=== PATIENT | female | born 1945 | race Caucasian/White ===

== ENCOUNTER 2019-10-27 16:51 | Inpatient (IN) | payer OTHER, BC ==
[~2019-10-27] VITALS: Ht 152.4 cm; Wt 103.4 kg
[2019-10-27 17:01] VITALS: BP 172/90
[2019-10-27 18:07] LABS: ABSOLUTE NEUTROPHILS 7.9 thou/uL (1.4-8.2); BASOPHILS 1.5 % (0.0-2.0); EOSINOPHILS 1.2 % (0.0-3.0); HEMATOCRIT 39.5 % (37.0-47.0); HEMOGLOBIN 12.9 gm/dL (12.0-15.0); MCH 30.8 pg (26.0-34.0); MCHC 32.8 g/dL (28.0-37.0); MCV 93.9 fL (80.0-100.0); MONOCYTES 4.7 % (1.0-8.0); PLATELET COUNT 224 thou/uL (150-400); POLYS 73.6 % (36.0-66.0); RBC 4.21 mil/uL (4.20-5.00); RDW 15.4 % (10.5-14.5); WBC 10.8 thou/uL (4.0-11.0)
[2019-10-27 18:15] LABS: ANION GAP 11 mmol/L (7-16); BUN 44 mg/dL (7-18); CALCIUM 10.5 mg/dL (8.5-10.1); CHLORIDE 101 mmol/L (98-107); CO2 26 mmol/L (21-32); CREATININE 1.5 mg/dL (0.6-1.0); GLUCOSE 180 mg/dL (74-106); POTASSIUM 4.1 mmol/L (3.5-5.1); SODIUM 138 mmol/L (136-145)
[2019-10-27 18:25] LABS: ALBUMIN 4.2 g/dL (3.4-5.0); SGOT 44 U/L (15-37); SGPT 51 U/L (30-65); TOTAL BILIRUBIN 1.2 mg/dL (<0.1-1.0); TOTAL PROTEIN 9.3 g/dL (6.4-8.2); TROPONIN-I <0.06 ng/mL (<0.06)
[2019-10-27 18:55] LABS: APTT 24.3 Seconds (24.5-32.8); PROTIME 10.7 Seconds (9.3-11.4)
[2019-10-27] MEDS ORDERED: IRON325 M1 PO (19:42)
[2019-10-27] MEDS ORDERED: FOLIC ACID1 MG PO (19:43)
[2019-10-27] MEDS ORDERED: METFORMIN HCL500 M3 PO (19:43)
[2019-10-27] MEDS ORDERED: VALSARTAN40 MG PO (19:46)
[2019-10-27] MEDS ORDERED: METHOTREXATE 22.5 M1 PO (19:48)
[2019-10-27] MEDS ORDERED: MICROZIDE12.5 MG PO (19:48)
[2019-10-27] MEDS ORDERED: ALLOPURINOL 10100 M2 PO (19:50)
[2019-10-27 19:52] VITALS: BP 135/64
[2019-10-27 20:01] VITALS: BP 135/64
[2019-10-27 20:36] VITALS: BP 148/63
[2019-10-27 20:47] VITALS: BP 142/48
[2019-10-27] MEDS ORDERED: PREDNISONE 1 MG1 M1 PO (23:07)
[2019-10-28 00:35] VITALS: BP 111/48
[2019-10-28 04:45] VITALS: BP 112/41
--- NOTE | 2019-10-28 05:22 | NUR ---
PT ARRIVED ON UNIT AROUND 2039. PT VSS WITH C/O HEADACHE ON LEFT SIDE. NO PAIN MEDICATION GIVEN AT TIME DUE TO ADMINISTRATION IN ED. PT HAD PARTIAL RELIEF OF PAIN. ADMIN ASSESSMENT CHARTED, MED RECONCILE, AND CONSENT SIGNED. PT RESTING IN BED WITH NO C/O CHEST PAIN OR SOA. MAINTAINING CARDIZEM DRIP AND PT HR/BP STABLE. WILL CONTINUE TO MONITOR PT PER PROTOCOL AND PLAN OF CARE.
[2019-10-28 06:04] LABS: CHOLESTEROL 167 mg/dL (<200); HDL CHOLESTEROL 56 mg/dL (>40); LDL CHOLESTEROL 93 mg/dL (<100); TRIGLYCERIDE 90 mg/dL (<150); VLDL 18 mg/dL (<40)
[2019-10-28 07:14] VITALS: BP 138/55
[2019-10-28 11:13] VITALS: BP 136/43
[2019-10-28 15:23] VITALS: BP 122/52
[2019-10-28 20:04] VITALS: BP 96/45
--- NOTE | 2019-10-29 01:35 | NUR ---
PROGRESS PT ALERT AND ORIENTED X 4. SLEEPING MOST OF SHIFT BUT DID WAKE UP AND RESPOND T ASSESSMENT QUESTIONS. BP ELEVATED AND METOPROLOL GIVEN ORDERED. DENIES HEADACHE. CARDIZEIM DRIP DISCONTINUED EARLY IN DAY PO CARDIZEIM GIVEN ORDERED. XARALTO INITIIATED. PT TO HAVE NUC MED STUDY, ECHO , US OF CAROTIDS DONE TOMORROW. IF TEST RESULTS WNL PT MAY DISCHARGE HOME TO TO F/U OUTPATIENT.
[2019-10-29 04:04] VITALS: BP 128/55
[2019-10-29 04:06] LABS: GLYCOHEMOGLOBIN (HGB A1C) 6.2 % (4.8-5.6)
[2019-10-29 10:55] VITALS: BP 144/74
[2019-10-29] MEDS ORDERED: CARDIZEM CD120 MG PO (11:27)
--- NOTE | 2019-10-29 11:38 | 2DMMODE ---
[facility] [address] [facility] [place] [address] 2 D/M-MODE ECHOCARDIOGRAM Name: ORTEGA PARKER Room #: 201-P ADM IN M.R.#: [id number] Admission: 10/27/19 Attend Phys: Wilfred Patel MD Discharge: Date of : 45 Report #: [id number] THIS REPORT FOR: //name// APPROVED REPORT Study performed: 10/29/2019 09:25:49 EXAM: Comprehensive 2D, Doppler, and color-flow Echocardiogram Patient Location: Echo lab Room #: 201 Status: routine BSA: 1.97 HR: 80 bpm BP: 128/55 mmHg Rhythm: NSR Other Information Study Quality: Adequate Indications Diabetes Atrial Fibrillation Hypertension/HDD 2D Dimensions RVDd: 33.15 mm IVSd: 8.97 (7-11mm) LVOT Diam: 18.79 (18-24mm) LVDd: 47.10 mm PWd: 9.05 (7-11mm) Ascending Ao: 27.13 (22-36mm) LVDs: 30.38 (25-40mm) Aortic Root: 25.19 mm IVC: 18.00 mm Volumes Left Atrial Volume (Systole) Single Plane 4CH: 39.70 mL Single Plane 2CH: 41.43 mL LA ESV Index: 22.00 mL/m2 Aortic Valve AoV Peak Jaylen.: 1.74 m/s AO Peak Gr.: 12.16 mmHg LVOT Max P.99 mmHg LVOT Max V: 1.00 m/s SAMUEL Vmax: 1.59 cm2 Mitral Valve E/A Ratio: 0.8 [facility] [address] [place] [address] 2 D/M-MODE ECHOCARDIOGRAM Name: ORTEGA PARKER Room #: 201-P [facility] IN [facility]#: [id number] Admission: 10/27/19 Attend Phys: Wilfred Patel MD Discharge: Date of : 45 Report #: [id number] MV Decel. Time: 320.70 ms MV E Max Jaylen.: 0.82 m/s MV A Jaylen.: 0.99 m/s MV PHT: 93.00 ms IVRT: 106.11 ms Pulmonary Valve PV Peak Jaylen.: 1.12 m/s PV Peak Gr.: 5.03 mmHg Pulmonary Vein P Vein S: 0.51 m/s P Vein A: 0.25 m/s P Vein D: 0.50 m/s P Vein A Dur.: 96.9 msec P Vein S/D Ratio: 1.02 Tricuspid Valve TR Peak Jaylen.: 2.25 m/s TR Peak Gr.: 20.19 mmHg PA Pressure: 25.00 mmHg Left Ventricle The left ventricle is normal size. There is normal LV segmental wall motion. There is normal left ventricular wall thickness. Left ventricular systolic function is normal. The left ventricular ejection fraction is within the normal range. LVEF is 55-60%. Grade I - abnormal relaxation pattern. Right Ventricle The right ventricle is normal size. The right ventricular systolic function is normal. Atria The left atrium size is normal. The right atrium size is normal. Aortic Valve The aortic valve is normal in structure. No aortic regurgitation is present. There is no aortic valvular stenosis. Mitral Valve The mitral valve is normal in structure. Trace mitral regurgitation. No evidence of mitral valve stenosis. Tricuspid Valve The tricuspid valve is normal in structure. There is trace tricuspid regurgitation. Estimated PAP 25 mmHg. There is no pulmonary hypertension. [facility] [address] [place] [address] 2 D/M-MODE ECHOCARDIOGRAM Name: ORTEGA PARKER Room #: 201-P [facility] IN [facility].#: [id number] Admission: 10/27/19 Attend Phys: Wilfred Patel MD Discharge: Date of : 45 Report #: [id number] Pulmonic Valve The pulmonary valve is normal in structure. Trace pulmonic regurgitation. Great Vessels The aortic root is normal in size. IVC is normal in size and collapses >50% with inspiration. Pericardium There is no pericardial effusion. <Conclusion> The left ventricle is normal size. Left ventricular systolic function is normal. The left ventricular ejection fraction is within the normal range. LVEF is 55-60%. Grade I - abnormal relaxation pattern. The right ventricle is normal size. The left atrium size is normal. The aortic valve is normal in structure. Trace mitral regurgitation. There is trace tricuspid regurgitation. Estimated PAP 25 mmHg. There is no pulmonary hypertension. The aortic root is normal in size. There is no pericardial effusion. <ELECTRONICALLY SIGNED> By: Barrie Weldon MD, FACC 10/29/19 1138 1138 1138 Barrie Weldon MD, FACC /INF
[2019-10-29] MEDS ORDERED: XARELTO10 MG PO (15:00)
[2019-10-29 15:14] VITALS: BP 144/74
[2019-10-29] MEDS ORDERED: LIPITOR 20 MG T20 M1 PO (15:15)
--- NOTE | 2019-10-29 16:08 | EKG ---
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
--- NOTE | 2019-10-29 16:10 | NUR ---
ASSESSMENT CHARTED. PT ALERT AND ORIENTED. VSS. DENIED HAVING PAIN OR DISCOMFORT. SEEN BY DR. VALDEZ AND STRIP POLISHER. ORDERS GIVEN TO DISCHARGE PT TO HOME. DISCHARGE INSTRUCTIONS GIVEN TO PT. PT VERBERLISED UNDERSTANDING. PT LEFT THE FACILITY ACCOMPANIED BY THE DAUGHTER.
--- NOTE | 2019-10-30 14:54 | EKG ---
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: [place] : 1945 Requested By: Yeni Love Order Number: [id number] MD: Waqas Nielsen Measurements Intervals [place] Rate: 131 P: [place]: QRS: -45 QRSD: 103 T: 68 QT: 334 QTc: 494 Interpretive Statements Atrial fibrillation Ventricular premature complex Incomplete RBBB and LAFB Anteroseptal infarct, age indeterminate No previous ECG available for comparison Electronically Signed On 10-30-2019 14:54:30 SHOP HELPER by Waqas Nielsen [email or web address] <ELECTRONICALLY SIGNED> By: Waqas Nielsen MD 10/30/19 1454 [id number] Waqas Nielsen MD /EPI
--- NOTE | 2019-10-30 14:58 | EKG ---
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: MAYCO : 1945 Requested By: Jannet Gambino Order Number: [id number] MD: Waqas Nielsen Measurements Intervals [place] Rate: 68 P: -83 MT: 312 QRS: -43 QRSD: 103 T: 9 QT: 417 QTc: 444 Interpretive Statements Sinus or ectopic atrial rhythm Prolonged MT interval Left axis deviation Probable anteroseptal infarct, old No previous ECG available for comparison Electronically Signed On 10-30-2019 14:57:44 [place] by Waqas Nielsen [email or web address] <ELECTRONICALLY SIGNED> By: Waqas Nielsen MD 10/30/19 1457 0754 0754 Waqas Nielsen MD /EPI
== END 2019-10-29 16:46 | disposition home or self-care (01) | DRG 310 ==
LOC: ER 16:51 → 2N 19:15 → EROBS 19:15 → 2N 20:23 → ENTRNSPT 10-29 15:58 → 2N 10-29 16:46
PROVIDERS: Nurse Practitioner Acute Care; Physician Assistant; ADMIT Hospitalist
DX: I48.91 Unspecified atrial fibrillation (principal); H53.9 Unspecified visual disturbance; H57.12 Ocular pain, left eye; M06.9 Rheumatoid arthritis, unspecified; M10.9 Gout, unspecified; J44.9 Chronic obstructive pulmonary disease, unspecified; E11.22 Type 2 diabetes mellitus with diabetic chronic kidney disease; I12.9 Hypertensive chronic kidney disease with stage 1 through stage 4 chronic kidney disease, or unspecified chronic kidney disease; N18.3 Chronic kidney disease, stage 3 (moderate); E78.5 Hyperlipidemia, unspecified; E03.9 Hypothyroidism, unspecified; Z87.891 Personal history of nicotine dependence; Z79.899 Other long term (current) drug therapy; Z79.84 Long term (current) use of oral hypoglycemic drugs; Z82.49 Family history of ischemic heart disease and other diseases of the circulatory system; Z79.01 Long term (current) use of anticoagulants
CPT/HCPCS: 10081

== ENCOUNTER → 2019-11-30 | Outpatient (CLI) | payer OTHER, BC ==
[~2019-11-30] MED LIST: ALLOPURINOL 10100 M2 PO; CARDIZEM CD120 MG PO; FOLIC ACID1 MG PO; IRON325 M1 PO; LIPITOR 20 MG T20 M1 PO; METFORMIN HCL500 M3 PO; METHOTREXATE 22.5 M1 PO; METOPROLOL SUCC50 MG PO; MICROZIDE12.5 MG PO; PACERONE 200 M200 M1 PO; PREDNISONE 1 MG1 M1 PO; VALSARTAN40 MG PO; XARELTO10 MG PO
== END ==
LOC: SJCVC 15:46
DX: I44.0 Atrioventricular block, first degree (principal); I45.10 Unspecified right bundle-branch block; I21.29 ST elevation (STEMI) myocardial infarction involving other sites; R94.31 Abnormal electrocardiogram [ECG] [EKG]; I48.91 Unspecified atrial fibrillation; E78.5 Hyperlipidemia, unspecified; I10 Essential (primary) hypertension; E11.9 Type 2 diabetes mellitus without complications; I65.23 Occlusion and stenosis of bilateral carotid arteries; M10.9 Gout, unspecified; Z87.891 Personal history of nicotine dependence; Z72.89 Other problems related to lifestyle; Z79.84 Long term (current) use of oral hypoglycemic drugs; Z79.899 Other long term (current) drug therapy

== ENCOUNTER 2019-12-01 10:29 | Inpatient (IN) | payer OTHER, BC ==
[2019-12-01] VITALS (8 sets, daily range): BP systolic 114–153; BP diastolic 45–87
[~2019-12-01] VITALS: Ht 154.9 cm; Wt 98.9 kg
--- NOTE | ~2019-12-01 | EKG ---
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
[~2019-12-01 10:29] MED LIST changes: -METOPROLOL SUCC50 MG PO; -PACERONE 200 M200 M1 PO
[2019-12-01 11:16] LABS: ABSOLUTE NEUTROPHILS 12.6 thou/uL (1.4-8.2)
[2019-12-01 11:18] LABS: BASOPHILS 0.4 % (0.0-2.0); LYMPHOCYTES 7.9 % (24.0-44.0); MCH 29.6 pg (26.0-34.0); MCHC 29.7 g/dL (28.0-37.0); MCV 99.7 fL (80.0-100.0); MONOCYTES 5.5 % (1.0-8.0); PLATELET COUNT 263 thou/uL (150-400); POLYS 86.2 % (36.0-66.0); RBC 1.94 mil/uL (4.20-5.00); RDW 19.9 % (10.5-14.5); WBC 14.6 thou/uL (4.0-11.0)
[2019-12-01 11:25] LABS: HEMATOCRIT 19.3 % (37.0-47.0); HEMOGLOBIN 5.7 gm/dL (12.0-15.0)
[2019-12-01 11:37] LABS: ANION GAP 14 mmol/L (7-16); BUN 27 mg/dL (7-18); CALCIUM 8.8 mg/dL (8.5-10.1); CHLORIDE 100 mmol/L (98-107); CO2 20 mmol/L (21-32); CREATININE 1.4 mg/dL (0.6-1.0); GLUCOSE 227 mg/dL (74-106); POTASSIUM 3.8 mmol/L (3.5-5.1); SODIUM 134 mmol/L (136-145)
[2019-12-01 11:47] LABS: ALBUMIN 3.3 g/dL (3.4-5.0); SGOT 20 U/L (15-37); SGPT 20 U/L (30-65); TOTAL BILIRUBIN 1.8 mg/dL (<0.1-1.0); TOTAL PROTEIN 7.6 g/dL (6.4-8.2); TROPONIN-I <0.06 ng/mL (<0.06)
[2019-12-01 11:59] LABS: ANISOCYTOSIS 2+; HYPOCHROMASIA 1+; PLATELET ESTIMATE NORMAL
--- NOTE | 2019-12-01 14:29 | NUR ---
VASCULAR ACCESS CONSULTED FOR PICC LINE. DISCUSSED BENEFITS AND RISKS OF PICC, WITH PT, VERBALIZED UNDERSTANDING. PT'S HISTORY ,LABS,MEDS ORDER VERIFIED. CHAUNCEY CEPHALIC WAS WIDELY PATENT WITH USG, BASILIC WAS TOO SMALL AND BRACHIAL WAS BENEATH ARTERY. ATTEMPTED PICC BUT UNABLE TO PASS SHOULDER AREA. PT STATES HAS ARTHRITIS IN BOTH SHOULDERS. LINE TRIMMED TO 10CM AND LABELED MIDLINE. RELEASED ML FOR IMMEDIATE USE PER PROTOCOL TO EMILIA AMARAL, ALSO ADVISED TO USE ML FOR PROTONIX NOT AMMIO DRIP. PT TOLERATED WELL
--- NOTE | 2019-12-01 18:21 | NUR ---
ASSUMMED PT CARE AT APPROXIMATELY 1515. PT A&O X4. ASSESSMENT CHARTED. FALL PRECAUTIONS IN PLACE. PT DENIES HAVING CHEST PAIN. PT DENIES HAVING ACUTE PAIN. PT STATES SHE HAS SOB ON EXERSION. O2 SATS STABLE. VITAL SIGNS STABLE. BLOOD SUGARS STABLE. PT RECIEVING ONE UNIT OF BLOOD. PT STABLE. SEE BLOOD TRANSFUSION INTERVENTION. ADMISSION COMPLETE. PT EDUCATED ABOUT POC. PT COMFORTABLE IN BED. PT DENIES HAVING FURTHER CONCERNS.
[2019-12-02 03:53] VITALS: BP 139/49
--- NOTE | 2019-12-02 07:22 | NUR ---
patients cares were assumd at shift change. patient was assessed and meds were passed. patient has been npo for a egd today. this patient has a amio gtt at 16.7 and protonix at 25cc/hr. pharm was call for another protonix bag. hourly rounds were done and the bed is in a low and locked position
[2019-12-02 07:23] VITALS: BP 131/58
--- NOTE | 2019-12-02 07:55 | EKG ---
[place] [address] [facility] [email or web address] [address] ELECTROCARDIOGRAM REPORT Name: KEITHORTEGA Gurdeep Room #: 201-P ADM IN M.R.#: [id number] Admission: 12/01/19 Attend Phys: Jenny Moy MD Discharge: Date of : 45 Report #: [id number] THIS REPORT FOR: //name// [facility] ED Test Date: 2019-12-01 Test Time: 10:54:38 Pat Name: ORTEGA PARKER Department: Room: 201 Gender: F Chairman And Ceo: mae : 1945 Requested By: Chandu Pillai Order Number: [id number] MD: Miles Wiggins Measurements Intervals [place] Rate: 123 P: [place]: QRS: -42 QRSD: 103 T: 81 QT: 328 QTc: 470 Interpretive Statements Atrial fibrillation Left axis deviation Low voltage, precordial leads Abnormal R-wave progression, early transition Nonspecific intraventricular conduction delay Borderline repolarization abnormality Compared to ECG 10/29/2019 06:57:24 Atrial fibrillation has replaced sinus rhythm Electronically Signed On 12-02-2019 7:54:51 SHOP STEWARD by Miles Wiggins [email or web address] <ELECTRONICALLY SIGNED> By: Miles Wiggins MD, [facility] 12/02/19 0754 1054 1054 Miles Wiggins MD, [facility] /EPI
[2019-12-02 08:17] LABS: HEMATOCRIT 27.3 % (37.0-47.0); HEMOGLOBIN 8.8 gm/dL (12.0-15.0); MCH 28.1 pg (26.0-34.0); MCHC 32.3 g/dL (28.0-37.0); PLATELET COUNT 308 thou/uL (150-400); RBC 3.14 mil/uL (4.20-5.00); RDW 14.9 % (10.5-14.5); WBC 10.1 thou/uL (4.0-11.0)
[2019-12-02 08:40] LABS: ABSOLUTE NEUTROPHILS 9.2 thou/uL (1.4-8.2); PLATELET ESTIMATE NORMAL
[2019-12-02 08:48] LABS: CALCIUM 7.7 mg/dL (8.5-10.1); CREATININE 0.8 mg/dL (0.6-1.0); MAGNESIUM 2.2 mg/dL (1.8-2.4); PHOSPHORUS 3.2 mg/dL (2.5-4.9); TOTAL BILIRUBIN 0.2 mg/dL (<0.1-1.0); TOTAL PROTEIN 4.6 g/dL (6.4-8.2)
[2019-12-02 12:15] VITALS: BP 129/72
--- NOTE | 2019-12-02 15:51 | NUR ---
PT ALERT AND ORIENTED. DENIED HAVING PAIN OR DISCOMFORT. HAD EGD THIS AM. NPO AFTER MIDNIGHT FOR COLONOSCOPY IN AM. ST ON MONITOR. CARDIOLOGY NOTIFIED. NO CONCERNS AT THIS TIME. WILL CONTINUE TO MONITOR.
[2019-12-02 17:05] VITALS: BP 118/60
[2019-12-02 21:01] LABS: HEMATOCRIT 28.1 % (37.0-47.0); HEMOGLOBIN 8.6 gm/dL (12.0-15.0)
[2019-12-02 21:06] VITALS: BP 115/60
[2019-12-03 04:44] LABS: HEMATOCRIT 24.7 % (37.0-47.0); HEMOGLOBIN 7.8 gm/dL (12.0-15.0); MCH 30.3 pg (26.0-34.0); MCHC 31.4 g/dL (28.0-37.0); RBC 2.56 mil/uL (4.20-5.00); RDW 17.8 % (10.5-14.5); WBC 7.9 thou/uL (4.0-11.0)
[2019-12-03 04:45] VITALS: BP 108/68
--- NOTE | 2019-12-03 04:48 | NUR ---
ASSESSMENT DOCUMENTED.PT BEEN RESTING IN NO ACUTE DISTRESS.A/OX4.VSS.BOWEL PREP FOR COLONOSCOPY,PT HAS BEEN CLEAR.NPO AFTER MIDNOC.SR/STACHY ON MONITOR.NO ACTIVE BLEEDING NOTED.PT DENIES PAIN OR ANY DISTRESS AT THIS TIME.WILL CONT TO MONITOR PER POC
[2019-12-03 04:54] LABS: MCV 96.4 fL (80.0-100.0)
[2019-12-03 05:20] LABS: CALCIUM 8.7 mg/dL (8.5-10.1); CREATININE 1.2 mg/dL (0.6-1.0); POTASSIUM 3.8 mmol/L (3.5-5.1)
[2019-12-03 07:20] VITALS: BP 126/63
[2019-12-03 15:15] VITALS: BP 113/50
--- NOTE | 2019-12-03 15:36 | NUR ---
ASSESSMENT CHARTED. PT ALERT AND ORIENTED. VSS. DENIED HAVING PAIN OR DISCOMFORT. HAD COLONOSCOPY THIS AM. NO CARDIAC DISTRESS NOTED. WILL CONTINUE TO MONITOR.
[2019-12-03 17:09] LABS: HEMATOCRIT 27.9 % (37.0-47.0); HEMOGLOBIN 8.8 gm/dL (12.0-15.0)
[2019-12-03 20:07] VITALS: BP 104/52
--- NOTE | 2019-12-04 01:07 | P ---
[facility] [place] [address] PROCEDURE REPORT Name: ORTEGA PARKER Room #: 201-P ADM IN M.R.#: [id number] Admission: 12/01/19 Attend Phys: Jenny Moy MD Discharge: Date of : 45 Report #: [id number] THIS REPORT FOR: //name// cc: SHARDA - Family physician unknown FAM - Family physician unknown ~ THIS REPORT FOR: //name// CC: SHARDA unknown Jenny Moy MD DIAGNOSTIC COLONOSCOPY She is a patient of Dr. Moy. INDICATION FOR PROCEDURE: The patient has a severe iron deficiency anemia of undetermined etiology. She had an EGD that was unrevealing as to the source. Colonoscopy is being done today as the next test and her workup for blood loss sources. Informed consent for this procedure was obtained prior to the administration of any medication. The risks of the procedure, which include bleeding, perforation, infection, complications of sedation and the possibility I could miss something have been explained to the patient. She has indicated her consent by signing. Anesthesia kindly provided deep sedation for this procedure today. DESCRIPTION OF PROCEDURE: With the patient in the left lateral decubitus position, a digital rectal exam was performed, no abnormalities were palpated or seen. Then, the Olympus colonoscope was introduced through the anal sphincter and advanced under direct visualization to the terminal ileum. Findings are noted on withdrawal of the scope. The terminal ileal mucosa appears normal. Cecum, normal mucosa. Ascending colon, normal mucosa. Retroflex view in the ascending colon did not reveal any abnormalities on the backsides of the folds. Hepatic flexure, normal mucosa. Transverse colon, normal mucosa. Splenic flexure, normal mucosa. Descending colon, a few uncomplicated diverticula noted in the descending colon. Sigmoid colon, a few uncomplicated diverticula are noted in the sigmoid colon. Rectum, normal mucosa. Retroflex view did not reveal any further abnormalities. The scope was withdrawn. The patient went to the recovery area in stable condition. She tolerated the procedure well. IMPRESSION: Normal colonoscopic exam to the terminal ileum except for uncomplicated left-sided diverticulosis. RECOMMENDATIONS: For her to proceed next to outpatient M2 video capsule study of the small intestine to look for a source of iron deficiency and blood loss [address] [address] PROCEDURE REPORT Name: ORTEGA PARKER Gurdeep Room #: 201-P ADM IN M.R.#: [id number] Admission: 12/01/19 Attend Phys: Jenny Moy MD Discharge: Date of : 45 Report #: [id number]. In this interim, we will give her 1 dose of 200 mg of IV sucrose today. From our standpoint, she could be discharged home. She had a normal hemoglobin in 10/2019. This was an abrupt drop in her hemoglobin. She has had heme positive stool and she has had a negative H. pylori stool antigen test. Thank you very much once again for allowing me to participate in her care, Dr. Moy. <ELECTRONICALLY SIGNED> By: Erica Hernandez DO 12/04/19 0107 1133 1926 Erica Hernandez DO /nt
[2019-12-04 05:10] VITALS: BP 113/49
--- NOTE | 2019-12-04 05:33 | NUR ---
ASSESSMENT DOCUMENTED.PT BEEN RESTING IN NO ACUTE DISTRESS.VSS.RA W/O RESP DISTRESS.A/OX4.DENIES PAIN OR ANY DISTRESS AT THIS TIME.POC IS TO GO HOME.WILL CONT TO MONITOR PER POC.
[2019-12-04 05:48] LABS: HEMOGLOBIN 7.9 gm/dL (12.0-15.0); MCH 30.2 pg (26.0-34.0); MCHC 31.5 g/dL (28.0-37.0); RBC 2.61 mil/uL (4.20-5.00); RDW 17.4 % (10.5-14.5); WBC 7.3 thou/uL (4.0-11.0)
[2019-12-04 05:58] LABS: CALCIUM 8.4 mg/dL (8.5-10.1); CREATININE 1.3 mg/dL (0.6-1.0); POTASSIUM 3.8 mmol/L (3.5-5.1)
[2019-12-04 07:25] VITALS: BP 129/54
[2019-12-04] MEDS ORDERED: PACERONE 200 M200 M1 PO (09:37)
[2019-12-04] MEDS ORDERED: METOPROLOL SUCC50 MG PO (09:37)
[2019-12-04 10:33] VITALS: BP 129/54
[2019-12-04 11:20] VITALS: BP 112/41
--- NOTE | 2019-12-04 11:38 | P ---
[facility] [place] [address] PROCEDURE REPORT Name: ORTEGA PARKER Room #: 201-P ADM IN M.R.#: [id number] Admission: 12/01/19 Attend Phys: Jenny Moy MD Discharge: Date of : 45 Report #: [id number] THIS REPORT FOR: //name// CC: VINH FERNANDEZ MD FAM unknown JAMIE Moy ___ ___ DATE OF SERVICE: 12/02/2019 PROCEDURE PERFORMED: Upper endoscopy. HISTORY OF PRESENT ILLNESS: The patient is a 74-year-old female who was admitted through the Emergency Room yesterday with significant anemia. She was seen by Cardiology in the office the day before yesterday with a hemoglobin of 5, told to come to the Emergency Room. She has been placed on Xarelto approximately a month ago for a history of AFib. She also takes methotrexate, prednisone as well as other medications. No previous history of GI bleed. No history of endoscopy. She has been having dark stools over the last month. She has been taking oral iron. Her hemoglobin on admission yesterday was 5.7. She received 2 units of packed cells. Her hemoglobin this morning is 8.8. Plan is for EGD. DESCRIPTION OF PROCEDURE: The risks and benefits of the procedure were explained to the patient, those risks including but not limited to bleeding, perforation and the risk of sedation. She understood these risks and gave informed consent. Sedation was given using propofol per anesthesia. Next, using a standard Olympus upper endoscope, the scope was placed in the patient's mouth and advanced under direct vision through the esophagus, stomach and into the second portion of the duodenum. The larynx was normal in appearance. The upper and mid esophagus was normal. In the distal esophagus, grade C erosive esophagitis was noted. No evidence of bleeding. There was a moderate patchy gastritis noted throughout the body and antrum. Several clean white based ulcers were noted. No evidence of bleeding. No evidence of blood throughout the exam today. I was not able to take biopsies as the patient has recently been on Xarelto. The pylorus was normal and patent. The duodenal bulb, first and second portion were all normal. The scope was then withdrawn and the procedure terminated. The patient tolerated the procedure well. IMPRESSION: 1. Grade C erosive esophagitis. 2. Small gastric ulcers with gastritis, clean white based ulcers. No evidence of bleeding. RECOMMENDATIONS: [address] [address] PROCEDURE REPORT Name: ORTEGA PARKER Room #: 201-P [facility] IN .R.#: [id number] Admission: 12/01/19 Attend Phys: Jenny Moy MD Discharge: Date of : 45 Report #: [id number] 1. Continue Protonix drip. 2. Continue to monitor hemoglobin closely. 3. We would recommend considering colonoscopy tomorrow as the patient has never had a colonoscopy before. 4. We will check a stool for H. pylori antigen. Thank you for allowing me to participate in her care. <ELECTRONICALLY SIGNED> By: Rahul Quintero MD 12/04/19 1138 0942 2238 Rahul Quintero MD /nt
--- NOTE | 2019-12-04 13:28 | NUR ---
ASSESSMENT CHARTED. PT ALERT AND ORIENTED. VSS. DENIED HAVING PAIN OR DISCOMFORT. SEEN BY DR. FOWLER. ORDERS GIVEN TO DISCHARGE PT TO HOME. DISCHARGE INSTRUCTIONS GIVEN TO PT. PT VERBERLISED UNDERSTANDING.
== END 2019-12-04 13:39 | disposition home or self-care (01) | DRG 380 ==
LOC: ER 10:29 → EROBS 13:19 → 2N 13:19 → ENTRNSPT 12-04 13:17 → EDTRNSPTSTS 12-04 13:20 → 2N 12-04 13:39
PROVIDERS: Emergency Medicine; Hospitalist; ADMIT Internal Medicine
PROC: 05HD33Z Insertion of Infusion Device into Right Cephalic Vein, Percutaneous Approach (ICD-10-PCS; principal; 2019-12-01)
PROC: 30233N1 Transfusion of Nonautologous Red Blood Cells into Peripheral Vein, Percutaneous Approach (ICD-10-PCS; principal; 2019-12-01)
PROC: 0DJ08ZZ Inspection of Upper Intestinal Tract, Via Natural or Artificial Opening Endoscopic (ICD-10-PCS; 2019-12-02)
PROC: 0DJD8ZZ Inspection of Lower Intestinal Tract, Via Natural or Artificial Opening Endoscopic (ICD-10-PCS; 2019-12-03)
DX: K22.11 Ulcer of esophagus with bleeding (principal); E43 Unspecified severe protein-calorie malnutrition; N17.9 Acute kidney failure, unspecified; Z68.41 Body mass index [BMI] 40.0-44.9, adult; I48.20 Chronic atrial fibrillation, unspecified; I48.0 Paroxysmal atrial fibrillation; K25.4 Chronic or unspecified gastric ulcer with hemorrhage; K29.71 Gastritis, unspecified, with bleeding; K57.31 Diverticulosis of large intestine without perforation or abscess with bleeding; E66.01 Morbid (severe) obesity due to excess calories; M06.9 Rheumatoid arthritis, unspecified; M10.9 Gout, unspecified; M19.90 Unspecified osteoarthritis, unspecified site; D64.9 Anemia, unspecified; E78.5 Hyperlipidemia, unspecified; I12.9 Hypertensive chronic kidney disease with stage 1 through stage 4 chronic kidney disease, or unspecified chronic kidney disease; E11.22 Type 2 diabetes mellitus with diabetic chronic kidney disease; G47.00 Insomnia, unspecified; N18.3 Chronic kidney disease, stage 3 (moderate); D63.8 Anemia in other chronic diseases classified elsewhere; Z98.891 History of uterine scar from previous surgery; Z79.899 Other long term (current) drug therapy; Z79.84 Long term (current) use of oral hypoglycemic drugs; Z82.49 Family history of ischemic heart disease and other diseases of the circulatory system; Z79.01 Long term (current) use of anticoagulants; Z23 Encounter for immunization
CPT/HCPCS: 10081; 27000; 62110; 62900; 70005

== ENCOUNTER → 2019-12-11 | Outpatient (CLI) | payer OTHER, BC ==
[~2019-12-11] MED LIST changes: +METOPROLOL SUCC50 MG PO; +PACERONE 200 M200 M1 PO
== END ==
LOC: SJCVC 15:04
DX: I21.29 ST elevation (STEMI) myocardial infarction involving other sites (principal); I44.0 Atrioventricular block, first degree; R94.31 Abnormal electrocardiogram [ECG] [EKG]; I10 Essential (primary) hypertension; I48.91 Unspecified atrial fibrillation; E78.5 Hyperlipidemia, unspecified; K92.2 Gastrointestinal hemorrhage, unspecified; D50.9 Iron deficiency anemia, unspecified; Z79.82 Long term (current) use of aspirin; Z79.899 Other long term (current) drug therapy

== ENCOUNTER → 2020-03-08 | Outpatient (CLI) | payer OTHER, BC | LOC: SJCVC 16:28 | DX: I45.2 Bifascicular block (principal); I44.0 Atrioventricular block, first degree; R94.31 Abnormal electrocardiogram [ECG] [EKG]; I48.0 Paroxysmal atrial fibrillation; D50.9 Iron deficiency anemia, unspecified; I10 Essential (primary) hypertension; E11.9 Type 2 diabetes mellitus without complications; E78.5 Hyperlipidemia, unspecified; I65.23 Occlusion and stenosis of bilateral carotid arteries; M10.9 Gout, unspecified; Z82.49 Family history of ischemic heart disease and other diseases of the circulatory system; Z87.891 Personal history of nicotine dependence; Z79.84 Long term (current) use of oral hypoglycemic drugs; Z79.899 Other long term (current) drug therapy ==

== ENCOUNTER → 2020-04-08 | Outpatient (CLI) | payer OTHER, BC | LOC: SJCVC 15:34 | DX: R94.31 Abnormal electrocardiogram [ECG] [EKG] (principal); I21.29 ST elevation (STEMI) myocardial infarction involving other sites; I45.2 Bifascicular block; I44.0 Atrioventricular block, first degree; I48.91 Unspecified atrial fibrillation; E11.9 Type 2 diabetes mellitus without complications; I10 Essential (primary) hypertension; E78.5 Hyperlipidemia, unspecified; Z87.19 Personal history of other diseases of the digestive system ==

== ENCOUNTER → 2020-06-01 | Outpatient (CLI) | payer OTHER, BC | LOC: SJCVC 13:41 | PROVIDERS: ATTEND Internal Medicine Cardiovascular Disease | DX: I45.2 Bifascicular block (principal); I44.0 Atrioventricular block, first degree; R94.31 Abnormal electrocardiogram [ECG] [EKG]; I48.91 Unspecified atrial fibrillation; I10 Essential (primary) hypertension; E11.9 Type 2 diabetes mellitus without complications; E78.00 Pure hypercholesterolemia, unspecified; M10.9 Gout, unspecified; E78.5 Hyperlipidemia, unspecified; Z79.84 Long term (current) use of oral hypoglycemic drugs; Z79.899 Other long term (current) drug therapy; Z87.891 Personal history of nicotine dependence ==

== ENCOUNTER → 2020-10-13 | Outpatient (CLI) | payer OTHER, BC | LOC: SJCVC 13:10 | PROVIDERS: ATTEND Internal Medicine Cardiovascular Disease | DX: R94.31 Abnormal electrocardiogram [ECG] [EKG] (principal); I45.2 Bifascicular block; I48.0 Paroxysmal atrial fibrillation; E78.00 Pure hypercholesterolemia, unspecified; I10 Essential (primary) hypertension; I48.91 Unspecified atrial fibrillation; D50.9 Iron deficiency anemia, unspecified; E11.9 Type 2 diabetes mellitus without complications; I65.23 Occlusion and stenosis of bilateral carotid arteries; Z79.899 Other long term (current) drug therapy; Z87.891 Personal history of nicotine dependence; Z87.19 Personal history of other diseases of the digestive system ==

== ENCOUNTER 2021-05-26 13:35 | Emergency (ER) | payer OTHER, BC ==
[~2021-05-26] VITALS: Ht 152.4 cm; Wt 104.3 kg
[2021-05-26 14:21] LABS: ABSOLUTE NEUTROPHILS 3.6 thou/uL (1.4-8.2); BASOPHILS 1.1 % (0.0-2.0); EOSINOPHILS 2.2 % (0.0-3.0); HEMATOCRIT 34.9 % (37.0-47.0); HEMOGLOBIN 11.6 gm/dL (12.0-15.0); LYMPHOCYTES 24.8 % (24.0-44.0); MCHC 33.1 g/dL (28.0-37.0); MCV 99.7 fL (80.0-100.0); MONOCYTES 8.5 % (1.0-8.0); PLATELET COUNT 192 thou/uL (150-400); POLYS 63.4 % (36.0-66.0); RBC 3.51 mil/uL (4.20-5.00); RDW 17.2 % (10.5-14.5); WBC 5.6 thou/uL (4.0-11.0)
[2021-05-26 14:27] LABS: ANION GAP 8 mmol/L (7-16); BUN 16 mg/dL (7-18); CALCIUM 8.7 mg/dL (8.5-10.1); CHLORIDE 109 mmol/L (98-107); CO2 26 mmol/L (21-32); CREATININE 1.4 mg/dL (0.6-1.0); GLUCOSE 106 mg/dL (74-106); POTASSIUM 3.8 mmol/L (3.5-5.1); SODIUM 143 mmol/L (136-145)
[2021-05-26 14:36] LABS: TROPONIN-I <0.06 ng/mL (<0.06)
[2021-05-26] MEDS ORDERED: DEMADEX20 MG PO (16:17)
[2021-05-26 16:38] VITALS: BP 156/57
--- NOTE | 2021-05-27 10:43 | EKG ---
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 : 1945 Requested By: Robin Andrea Order Number: [id number] MD: Miles Wiggins Measurements Intervals [place] Rate: 63 P: 238 IL: 305 QRS: -66 QRSD: 151 T: 9 QT: 509 QTc: 522 Interpretive Statements Sinus rhythm Prolonged [place] interval RBBB and LAFB Compared to ECG 12/04/2019 07:30:10 Ectopic atrial rhythm now present Left anterior fascicular block now present Right bundle-branch block now present Electronically Signed On 05-27-2021 10:42:57 CDT by Miles Wiggins [email or web address] <ELECTRONICALLY SIGNED> By: Miles Wiggins MD, [facility] 05/27/21 1042 1352 1352 Miles Wiggins MD, [facility] /EPI
== END 2021-05-26 16:39 | disposition home or self-care (01) ==
LOC: ER 13:35
PROVIDERS: Student in an Organized Health Care Education/Training Program
DX: R06.02 Shortness of breath (principal); J90 Pleural effusion, not elsewhere classified; I10 Essential (primary) hypertension; M06.9 Rheumatoid arthritis, unspecified; M19.90 Unspecified osteoarthritis, unspecified site; E11.9 Type 2 diabetes mellitus without complications; Z90.49 Acquired absence of other specified parts of digestive tract; Z79.899 Other long term (current) drug therapy; F17.210 Nicotine dependence, cigarettes, uncomplicated

== ENCOUNTER → 2021-05-29 | Outpatient (CLI) | payer OTHER, BC ==
[~2021-05-29] MED LIST changes: +DEMADEX20 MG PO
== END ==
LOC: SJCVC 12:08
PROVIDERS: ATTEND Internal Medicine Cardiovascular Disease
DX: R94.31 Abnormal electrocardiogram [ECG] [EKG] (principal); I45.2 Bifascicular block; I44.0 Atrioventricular block, first degree; R60.9 Edema, unspecified; I10 Essential (primary) hypertension; E78.00 Pure hypercholesterolemia, unspecified; I51.89 Other ill-defined heart diseases; I48.0 Paroxysmal atrial fibrillation; D50.9 Iron deficiency anemia, unspecified; E11.9 Type 2 diabetes mellitus without complications; I65.23 Occlusion and stenosis of bilateral carotid arteries; M10.9 Gout, unspecified; E78.5 Hyperlipidemia, unspecified; Z87.19 Personal history of other diseases of the digestive system; Z87.891 Personal history of nicotine dependence; Z79.899 Other long term (current) drug therapy; Z72.89 Other problems related to lifestyle

== ENCOUNTER 2021-12-29 23:56 | Emergency (ER) | payer OTHER, BC ==
[~2021-12-29] VITALS: Ht 152.4 cm; Wt 104.3 kg
[2021-12-30 01:03] LABS: ABSOLUTE NEUTROPHILS 2.7 thou/uL (1.4-8.2); BASOPHILS 1.2 % (0.0-2.0); EOSINOPHILS 2.4 % (0.0-3.0); HEMATOCRIT 28.2 % (37.0-47.0); HEMOGLOBIN 9.1 gm/dL (12.0-15.0); LYMPHOCYTES 25.2 % (24.0-44.0); MCH 30.8 pg (26.0-34.0); MCHC 32.2 g/dL (28.0-37.0); MCV 95.7 fL (80.0-100.0); MONOCYTES 7.8 % (1.0-8.0); PLATELET COUNT 146 thou/uL (150-400); POLYS 63.4 % (36.0-66.0); RBC 2.95 mil/uL (4.20-5.00); RDW 18.3 % (10.5-14.5); WBC 4.3 thou/uL (4.0-11.0)
[2021-12-30] MEDS ORDERED: OMEPRAZOLE40 MG PO (01:05)
[2021-12-30] MEDS ORDERED: LEVOTHYROXINE50 MCG PO (01:06)
[2021-12-30 01:27] LABS: CALCIUM 8.3 mg/dL (8.5-10.1); CREATININE 1.6 mg/dL (0.6-1.0); POTASSIUM 3.8 mmol/L (3.5-5.1)
[2021-12-30 01:43] LABS: ALBUMIN 2.7 g/dL (3.4-5.0); TOTAL BILIRUBIN 1.4 mg/dL (0.2-1.0); TOTAL PROTEIN 7.5 g/dL (6.4-8.2)
[2021-12-30 02:07] LABS: APTT 28.5 Seconds (24.5-32.8); INR 1.17; PROTIME 12.7 Seconds (10.5-12.1)
[2021-12-30] MEDS ORDERED: VENTOLIN HFA 1818 GM INH (02:44)
[2021-12-30] MEDS ORDERED: PREDNISONE 20 M20 MG PO (02:44)
[2021-12-30 02:46] VITALS: BP 123/49
[2021-12-30] MEDS ORDERED: AZITHROMYCIN 2250 MG PO (05:52)
--- NOTE | 2021-12-30 09:49 | EKG ---
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
== END 2021-12-30 03:02 | disposition home or self-care (01) ==
LOC: ER 23:56
PROVIDERS: Emergency Medicine
DX: J98.01 Acute bronchospasm (principal); Z20.822 Contact with and (suspected) exposure to COVID-19; F17.210 Nicotine dependence, cigarettes, uncomplicated; I10 Essential (primary) hypertension; M10.9 Gout, unspecified; M19.90 Unspecified osteoarthritis, unspecified site; J18.9 Pneumonia, unspecified organism; E11.9 Type 2 diabetes mellitus without complications; Z98.890 Other specified postprocedural states; Z90.49 Acquired absence of other specified parts of digestive tract